=== PATIENT | female | born 1965 | race Caucasian/White ===

== ENCOUNTER 2017-05-07 07:57 | Day surgery (SDC) | payer OTHER ==
[2017-05-03 13:35] VITALS: BMI 19.2
[2017-05-07] MEDS ORDERED: PROPOFOL 20 ML ONE ×2 (08:04)
[2017-05-07 08:09] VITALS: TEMP 98
[2017-05-07 11:35] VITALS: BP 100/51; PULSE 56
== END 2017-05-07 10:10 | disposition home or self-care (01) ==
LOC: FASU-ENDO 07:57
PROVIDERS: ATTEND Internal Medicine Gastroenterology
PROC: 0DJD8ZZ Inspection of Lower Intestinal Tract, Via Natural or Artificial Opening Endoscopic (ICD-10-PCS; principal; 2017-05-07 09:18)
DX: Z12.11 Encounter for screening for malignant neoplasm of colon (principal)
CPT/HCPCS: 84703